=== PATIENT | male | born 1975 | race Caucasian/White ===

== ENCOUNTER 2018-09-09 21:20 | Emergency (ER) | payer OTHER ==
--- NOTE | 2018-09-09 21:22 | ERPHSYRPT ---
- History of Present Illness Time Seen by Provider: 09/09/18 21:22 Source: patient, family Exam Limitations: no limitations Physician History: 42 y/o right handed white male with nkda, presents with a 1cm superficial dog bite to left hand. occurred [employer] boat [employer] when family dog bit him while playing. pts tetanus status not utd. dogs immunization status is utd. no sig pain. Timing/Duration: today Quality: burning (mild) Severity: mild Location: hands (left hand) Possible Causes: other (dog bite) Associated Symptoms: denies symptoms - Review of Systems Constitutional: No Symptoms Eyes: No Symptoms Ears, Nose, & Throat: No Symptoms Respiratory: No Symptoms Cardiac: No Symptoms Abdominal/Gastrointestinal: No Symptoms Genitourinary Symptoms: No Symptoms Musculoskeletal: Other (dog bite left hand) Skin: Other (dog bite left hand) Neurological: No Symptoms Psychological: No Symptoms Endocrine: No Symptoms Hematologic/Lymphatic: No Symptoms Immunological/Allergic: No Symptoms All Other Systems: Reviewed and Negative - Past Medical History Neurological History: No Pertinent History ENT History: No Pertinent History Cardiac History: No Pertinent History Respiratory History: No Pertinent History Endocrine Medical History: No Pertinent History Musculoskeletal History: No Pertinent History GI Medical History: No Pertinent History History: No Pertinent History Psycho-Social History: No Pertinent History Male Reproductive Disorders: No Pertinent History - Past Surgical History Neuro Surgical History: No Pertinent History Cardiac: No Pertinent History Respiratory: No Pertinent History Gastrointestinal: No Pertinent History Genitourinary: No Pertinent History Musculoskeletal: No Pertinent History Male Surgical History: No Pertinent History - Nursing Vital Signs Nursing Vital Signs: Initial Vital Signs Temperature 97.6 F 09/09/18 21:27 Pulse Rate 118 H 09/09/18 21:27 Respiratory Rate 16 09/09/18 21:27 Blood Pressure 122/83 09/09/18 21:27 O2 Sat by Pulse Oximetry 96 09/09/18 21:27 Pain Scale Pain Intensity 6 - Physical Exam General Appearance: no apparent distress, alert Eye Exam: PERRL/EOMI, eyes nml inspection Ears, Nose, Throat Exam: normal ENT inspection, moist mucous membranes Neck Exam: normal inspection, non-tender, supple, full range of motion Respiratory Exam: normal breath sounds, lungs clear, airway intact, No chest tenderness, No respiratory distress Cardiovascular Exam: normal peripheral pulses Gastrointestinal/Abdomen Exam: soft, No tenderness Extremity Exam: normal range of motion, pelvis stable, other (1cm dog bite left hand) Neurologic Exam: alert, oriented x 3, cooperative, 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 through skin only. ) Lymphatic Exam: No adenopathy SpO2 Interpretation: normal O2 Delivery: Room Air Ordered Tests: Medication Summary Generic Name Dose Route Start Last Admin Trade Name Freq PRN Reason Stop Dose Admin Amoxicillin/Clavulanate Potassium 500 mg 09/09/18 21:40 Augmentin 500-125 Tablet PO 09/09/18 21:41 STAT ONE - Progress Progress: unchanged Counseled pt/family regarding: diagnosis, need for follow-up - Departure Departure Disposition: Home Clinical Impression: Dog bite of left hand Condition: Stable Critical Care Time: No Referrals: EMILIO MCKEON, [employer] [Primary Care Provider] - Additional Instructions: keep site clean daily with soap and water. no ointments lotions or creams. use tylenol and ibuprofen for pain. return to ED or primary doctor office if symptoms worsen. cover site daily with bandage. Prescriptions: Amoxicillin/Potassium Clav [Augmentin 500-125 Tablet] 1 each PO BID #14 tablet
[2018-09-09] MEDS ORDERED: Augmentin 500-125 Tablet ONE (21:46)
[2018-09-09] MEDS ORDERED: Adacel Vial IM ONE (21:47)
[2018-09-09] MEDS: Augmentin 500-125 Tablet PO ONE (21:49)
[2018-09-09] MEDS: Adacel Vial IM ONE (21:49)
[2018-09-09 21:59] VITALS: BP 113/81; PULSE 105; O2SAT 97
== END 2018-09-09 22:06 | disposition home or self-care (01) ==
LOC: ED 21:20
DX: S61.412A Laceration without foreign body of left hand, initial encounter (principal); W54.0XXA Bitten by dog, initial encounter
CPT/HCPCS: 90471; 90715; 99283; A9270-GY